=== PATIENT | female | born 1995 | race Caucasian/White ===

== ENCOUNTER 2022-08-06 12:43 | Emergency (ER) | payer OTHER ==
[~2022-08-06] VITALS: Ht 172.7 cm; Wt 81.7 kg
[2022-08-06] MEDS ORDERED: ONDA4ODT MM (16:06)
== END 2022-08-06 16:16 | disposition home or self-care (01) ==
LOC: ER 12:43
DX: S06.0X0A Concussion without loss of consciousness, initial encounter (principal); W22.8XXA Striking against or struck by other objects, initial encounter
CPT/HCPCS: 70450